=== PATIENT | male | born 2000 | race Caucasian/White ===

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

== ENCOUNTER 2020-02-13 21:33 | Emergency (ER) | payer OTHER ==
[~2020-02-13] VITALS: Ht 167.6 cm; Wt 64.9 kg
[~2020-02-13 21:33] MED LIST: GLIPIZIDE5 M2 PO
[2020-02-13 21:42] VITALS: Ht 167.6 cm; Wt 64.9 kg
[2020-02-14 02:42] VITALS: BP 155/76
== END 2020-02-14 02:42 | disposition home or self-care (01) ==
LOC: ED 21:33
DX: L03.012 Cellulitis of left finger (principal); E11.65 Type 2 diabetes mellitus with hyperglycemia
CPT/HCPCS: 36600; 82962; 90715; J2001

== ENCOUNTER 2020-02-17 20:48 | Emergency (ER) | payer OTHER ==
[~2020-02-17] VITALS: Ht 170.2 cm; Wt 74.4 kg
[2020-02-17 20:57] VITALS: BP 126/68; Ht 170.2 cm; Wt 74.4 kg
== END 2020-02-17 21:04 | disposition home or self-care (01) ==
LOC: ED 20:48
DX: Z48.01 Encounter for change or removal of surgical wound dressing (principal)

== ENCOUNTER 2020-02-27 19:43 | Emergency (ER) | payer OTHER ==
[~2020-02-27] VITALS: Ht 167.6 cm; Wt 65.8 kg
[2020-02-27 21:49] VITALS: BP 125/49
== END 2020-02-27 21:50 | disposition home or self-care (01) ==
LOC: ED 19:43
DX: L03.012 Cellulitis of left finger (principal); E11.9 Type 2 diabetes mellitus without complications; E78.00 Pure hypercholesterolemia, unspecified